=== PATIENT | female | born 1950 | race Caucasian/White ===

== ENCOUNTER 2016-12-13 23:09 | Emergency (ER) | payer MEDICARE, OTHER ==
[2016-12-13 23:30] LABS: BASOPHIL 0.8 % (0-2); EOSINOPHIL 1.7 % (0-7); HCT 42.8 % (37.0-47.0); HGB 14.5 g/dl (12.5-16.0); LYMPHOCYTE 46.1 % (15-48); MCH 29.8 pg (25.0-31.0); MCHC 33.9 g/dL (32.0-36.0); MCV 88.1 fL (78.0-100.0); MONOCYTE 7.5 % (0-12); MPV 10.8 fL (6.0-9.5); NEUTROPHIL 43.9 % (41-80); PLT 309 K/uL (150-400); RBC 4.86 M/uL (4.20-5.40); RDW 14.7 % (11.5-14.0); WBC 9.2 K/uL (4.0-10.5)
[2016-12-14 00:09] LABS: INR 0.92 (0.9-1.2); PTT 28.5 SECONDS (23.2-31.4)
[2016-12-14 00:11] LABS: D-DIMER 0.35 ug/mLFEU (0.00-0.41)
[2016-12-14 00:25] LABS: ALBUMIN 4.1 g/dL (3.4-4.8); BILIRUBIN - TOTAL 0.4 mg/dL (0.1-1.0); CREATININE 0.7 mg/dL (0.5-1.0); GLOBULIN (CALCULATION) 2.6 g/dL (2.2-4.2); MAGNESIUM 1.69 mg/dL (1.40-2.10); MYOGLOBIN 21 ng/mL (26-65); POTASSIUM 3.8 mmol/L (3.5-5.1); PRO-BNP 89 pg/mL (0-125); TOTAL PROTEIN 6.7 g/dL (6.4-8.3); TROPONIN T < 0.010 ng/mL
[2016-12-14 02:03] LABS: CKMB 2.72 ng/mL (0.97-4.94)
== END 2016-12-14 06:45 | disposition other institution (70) ==
LOC: FER 23:09
PROVIDERS: Emergency Medicine
DX: R07.89 Other chest pain (principal); R06.02 Shortness of breath; R05 Cough; I44.0 Atrioventricular block, first degree; R19.8 Other specified symptoms and signs involving the digestive system and abdomen; I25.10 Atherosclerotic heart disease of native coronary artery without angina pectoris; I11.9 Hypertensive heart disease without heart failure; E11.9 Type 2 diabetes mellitus without complications; J45.909 Unspecified asthma, uncomplicated; E78.5 Hyperlipidemia, unspecified; Z88.0 Allergy status to penicillin; Z88.8 Allergy status to other drugs, medicaments and biological substances; Z91.041 Radiographic dye allergy status; Z79.84 Long term (current) use of oral hypoglycemic drugs; Z79.4 Long term (current) use of insulin; Z79.82 Long term (current) use of aspirin; Z79.899 Other long term (current) drug therapy; Z95.5 Presence of coronary angioplasty implant and graft
CPT/HCPCS: 36415; 36600; 71010; 71250; 80053; 82550; 82553; 82803; 83735; 83874; 83880; 84484; 85025; 85379; 85610; 85730; 93005

== ENCOUNTER → 2021-02-25 | Day surgery (SDC) | payer MEDICARE, OTHER ==
[~2021-02-25] VITALS: Ht 160 cm; Wt 104.3 kg
[~2021-02-25] MED LIST: ASPIRIN EC81 MG PO; CELEBREX **OUT100 MG PO; GLUCOTROL5 MG PO; LANTUS **100 UNITS/ SC; LIPITOR20 M1 PO; LYUMJEV KW100 UNIT/1 SC; MEDROL 4MG DOSEP4 MG PO; METFORMIN HCL500 MG PO; NAPROSYN500 MG PO; NEURONTIN300 MG PO; NITROSTAT0.4 MG SL; NORCO 5-325 TA1 EACH PO; NORVASC5 MG PO; ROBAXIN500 MG PO; SOLIQUA 100 UNIT3 ML SC; TOPROL XL 25MG25 MG PO; VALSARTAN-HCTZ1 EAC4 PO; VENTOLIN HFA IN18 GM PO; VOLTAREN100 GM TOP; WELLBUTRIN SR150 MG PO
[2021-02-25 10:32] LABS: HCT 42.5 % (37.0-47.0); HGB 14.7 g/dl (12.5-16.0); MCH 31.1 pg (25.0-31.0); MCHC 34.6 g/dL (32.0-36.0); RBC 4.72 M/uL (4.20-5.40); RDW 14.2 % (11.5-14.0); WBC 7.3 K/uL (4.0-10.5)
[2021-02-25 11:30] LABS: CREATININE 0.59 mg/dL (0.51-0.95); POTASSIUM 4.1 mmol/L (3.5-5.1)
== END | disposition home or self-care (01) ==
LOC: FAS 09:33
PROVIDERS: Anesthesiology
DX: G56.02 Carpal tunnel syndrome, left upper limb (principal); E11.40 Type 2 diabetes mellitus with diabetic neuropathy, unspecified; I10 Essential (primary) hypertension; I44.0 Atrioventricular block, first degree; G47.30 Sleep apnea, unspecified; M06.9 Rheumatoid arthritis, unspecified; Z88.0 Allergy status to penicillin; Z88.8 Allergy status to other drugs, medicaments and biological substances; Z79.4 Long term (current) use of insulin
CPT/HCPCS: 36415; 80048; 93005; J2250; J2405; J2550; J2704; J2795; J3010; J7120

== ENCOUNTER 2021-08-03 08:59 | Emergency (ER) | payer MEDICARE | END 2021-08-03 11:18 | disposition home or self-care (01) | LOC: FER 08:59 | DX: T81.31XA Disruption of external operation (surgical) wound, not elsewhere classified, initial encounter (principal); E11.9 Type 2 diabetes mellitus without complications; J45.909 Unspecified asthma, uncomplicated; Z88.0 Allergy status to penicillin; Z88.8 Allergy status to other drugs, medicaments and biological substances; Z91.041 Radiographic dye allergy status | CPT/HCPCS: 71250; 87070; 87186; 87205 ==